=== PATIENT | female | born 1935 | race Caucasian/White ===

== ENCOUNTER → 2020-07-16 15:23 | Outpatient (BNVA) | payer MEDICARE, SELFPAY | PROVIDERS: Family Provider Specialist; PCP Family Medicine; Visit Provider Nurse Practitioner | DX: R55 Syncope and collapse (principal); R20.0 Anesthesia of skin; R20.2 Paresthesia of skin | CPT/HCPCS: 99204 ==

== ENCOUNTER 2020-07-31 09:15 | Outpatient (CLI) | payer MEDICARE, SELFPAY ==
--- NOTE | 2020-07-31 09:30 | CT_ITS ---
WS: [id number] CT ANGIOGRAM CEREBRAL AND CAROTID ARTERIES NONCONTRAST CT HEAD HISTORY: R55 - Syncope and collapse TECHNIQUE: CT angiogram is performed of the carotid and cerebral arteries. During arterial injection imaging is obtained from the skull vertex to the aortic arch in 1.25 mm imaging. Coronal and sagittal reformats are submitted. Additional multi planar reformats of the carotid and cerebral arteries are submitted, MIP imaging also reviewed. NASCET criteria utilized. All CT scans at [facility] use at least one of these dose optimization techniques: automated exposure control; mA and/or kV ad justment per patient size (includes targeted exams where dose is matched to clinical indication); or iterative reconstruction. CONTRAST: Visipaque 320; 95 mL IV. DLP: 1967.73 mGycm COMPARISON: None available. Noncontrast CT head is first performed. 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 Prior infarct with volume loss posterior RIGHT parietal lobe. Additional infarcts bilaterall y in the posterior frontoparietal regions. There is no hemorrhage. Mild ventriculomegaly from central and peripheral atrophy. Small scalp hematoma over the LEFT frontal bone. Carotid Angiogram: Right carotid: Common carotid artery: Tortuous common carotid artery with a small amount of plaque and intimal thick ening. Internal carotid artery: Intimal thickening and calcified plaque at the bifurcation. No high-grade st enosis. External carotid artery: Patent. Left carotid: Common carotid artery: Tortuous carotid artery. No high-grade stenosis. Internal carotid artery: No plaque or stenosis. External carotid artery: Patent. Right vertebral artery: No stenosis. Left vertebral artery: Moderate stenosis involving the origin of the LEFT vertebral artery. Subclavian arteries: 50% stenosis involving the origin of the RIGHT subclavian artery. There is calci fied plaque and intimal thickening. Circumferential soft plaque and a few scattered calcifications at the origin of the LEFT subclavian clavian artery. Multifocal areas of plaque or significant stenosis . The LEFT axillary artery is not well visualized. There is an artifact obscuring the LEFT axillary a rtery but I cannot exclude a high-grade stenosis. Upper thorax: Normal. Thyroid gland: Normal. Osseous structures: Cervical spondylosis. No destructive changes. Mild anterior wedging of T1 and T2. CEREBRAL ANGIOGRAM: Intracranial vertebral arteries: Normal with no significant atherosclerosis. Basilar artery: No significant stenosis or occlusion. No aneurysm. Intracranial Internal carotid arteries: Mild atherosclerotic plaque to the petrous and cavernous lan tid artery. 50% stenosis involving the RIGHT petrous intracranial carotid artery. Additional stenosis with calcified plaque involving the transverse portion of the LEFT intracranial carotid artery. Middle cerebral arteries: Normal. Anterior cerebral arteries and ACOM: Normal. Posterior cerebral arteries and PCOM's: No stenosis or occlusion. Dural venous sinuses are normally enhancing. Mastoid air cells: Normal. Paranasal sinuses: Normal. Calvarium: Normal. CT/CT angio headneck* [id number] IMPRESSION: 1. Less than 50% stenosis extracranial carotid arteries. 2. 50% stenosis RIGHT petrous carotid artery and the LEFT transverse intracran ial carotid artery. 3. Multifocal cerebral infarcts. Multiple frontal lobe infarcts and posterior RIGHT parietal lobe infarct. 4. No acute hemorrhage. 5. No occlusions within the [place]. 6. Artifact obscuring the LEFT axillary artery.
[2020-07-31 10:18] LABS: Blood Urea Nitrogen 12 mg/dL (8-23)
[2020-07-31] MEDS: iodixanol 320 mg/mL 100mL Btl IV (10:37)
== END 2020-07-31 09:16 | disposition home or self-care (01) ==
LOC: RADWPI 09:20
PROVIDERS: Specialist; PCP Family Medicine; Visit Provider Nurse Practitioner
DX: R55 Syncope and collapse (principal); I63.89 Other cerebral infarction; I65.23 Occlusion and stenosis of bilateral carotid arteries
CPT/HCPCS: 70496; 70498; 82565; 84520; Q9967